=== PATIENT | female | born 1930 | race Caucasian/White ===

== ENCOUNTER 2021-03-23 16:27 | Observation (INO) | payer MEDICARE ==
--- NOTE | 2021-03-23 16:45 | ED ---
General Adult HPI - General Chief complaint: Chest Pain Stated complaint: chest & back pain Time Seen by Provider: 03/23/21 16:44 Source: patient Mode of arrival: ambulatory Limitations: no limitations - History of Present Illness Initial comments: Patient presents to the ED with her daughter for evaluation. Patient states that she has had left-sided chest pain and pain in her back between her shoulder blades intermittently for the past "few days". Patient cannot tell me exactly when her pain began. Patient states that she currently has mild pain between her shoulder blades. Patient admits to having a chronic and unchanged cough, as well as chronic and unchanged dyspnea. Patient denies trauma or injury, fever or chills, headache, focal numbness/weakness/neuro deficit, neck/arm/jaw pain, pleuritic pain, hemoptysis, palpitations, dizziness, nausea/vomiting/diaphoresis, abdominal pain, dysuria or urinary symptoms, decreased urine output, leg or calf pain, or any other symptoms or complaints. Patient states that she has not been vaccinated against Covid. - Related Data Allergies Allergy/AdvReac Type Severity Reaction Status Date / Time azithromycin Allergy Rash/Hives Verified 03/23/21 16:37 chlorpheniramine Allergy Unknown Verified 03/23/21 16:37 [From Duravent-DA] dexamethasone Allergy Unknown Verified 03/23/21 16:37 estradiol [From Estrace] Allergy Unknown Verified 03/23/21 16:37 folic acid Allergy Unknown Verified 03/23/21 16:37 methotrexate Allergy Unknown Verified 03/23/21 16:37 naproxen Allergy Unknown Verified 03/23/21 16:37 phenylephrine Allergy Unknown Verified 03/23/21 16:37 [From Duravent-DA] scopolamine Allergy Unknown Verified 03/23/21 16:37 [From Duravent-DA] shellfish derived [Shellfish] Allergy Unknown Verified 03/23/21 16:37 Review of Systems ROS Statement: Those systems with pertinent positive or pertinent negative responses have been documented in the HPI. ROS Other: All systems not noted in ROS Statement are negative. Past Medical History Past Surgical History: Appendectomy, Back Surgery, Cholecystectomy, Heart Catheterization, Hernia Repair, Hysterectomy, Orthopedic Surgery Past Psychological History: No Psychological Hx Reported Smoking Status: Never smoker Past Alcohol Use History: None Reported Past Drug Use History: None Reported General Exam Limitations: no limitations General appearance: alert, in no apparent distress Head exam: Present: atraumatic, normocephalic Eye exam: Present: normal appearance, EOMI ENT exam: Present: mucous membranes moist Neck exam: Present: other (Trachea is in midline). Absent: tenderness Respiratory exam: Present: normal lung sounds bilaterally. Absent: respiratory distress, wheezes, rales, rhonchi, stridor, chest wall tenderness Cardiovascular Exam: Present: regular rate, normal rhythm, normal heart sounds, other (Normal radial pulses bilaterally) GI/Abdominal exam: Present: soft. Absent: distended, tenderness, guarding Extremities exam: Present: other (1+ bilateral lower leg pitting edema; negative Homans sign bilaterally). Absent: tenderness, calf tenderness Back exam: Present: normal inspection. Absent: tenderness, CVA tenderness (R), CVA tenderness (L) Neurological exam: Present: alert, oriented X3. Absent: motor sensory deficit Psychiatric exam: Present: normal affect, normal mood Skin exam: Present: warm, dry, intact, normal color Course Vital Signs 03/23/21 03/23/21 03/23/21 16:30 17:04 17:19 Temperature 97.7 F Pulse Rate 70 73 Respiratory 18 20 16 Rate Blood Pressure 188/76 173/81 O2 Sat by Pulse 98 97 Oximetry 03/23/21 18:39 Temperature Pulse Rate Respiratory Rate Blood Pressure 166/79 O2 Sat by Pulse Oximetry - Reevaluation(s) Reevaluation #1: 03/23/21 18:15 Patient reports having an unknown reaction to IVP dye in the past. As such, will premedicate the patient with IV fluids, IV Benadryl and IV Solu-Medrol prior to obtaining CT angiography chest/abdomen/pelvis. 03/23/21 19:38 Patient states that her pain has now improved, and she denies development of any new symptoms while in the ED. Patient remains alert and breathing comfortably with a normal room air oxygen saturation. Patient's blood pressure has now improved, but is still elevated, and family reports that the patient does not have a history of hypertension. Patient and family are aware the patient's test results, and they all agree with hospital admission at this time. 03/23/21 20:01 Case, H&P, test results and ED management were discussed with Dr. Koch. She accepts hospital admission. She agrees with cardiology consultation. She has no further recommendations at this time. EKG Findings - EKG Comments: EKG Findings:: Sinus rhythm with a single PAC, ventricular rate of 75 bpm, normal ND and QRS intervals, normal QT interval, normal axis, no ST or T-wave ab normality Medical Decision Making - Medical Decision Making Patient's EKG is fairly unremarkable. Patient's troponin is negative. Patient's d-dimer is negative. Patient's CT angiography thorax/abdomen/pelvis aorta is negative for dissection, aneurysm or pulmonary embolism. Given the patient's reported chest pain, old age and elevated blood pressure readings in the ED, will admit the patient to the hospital for serial troponins, cardiac mon itoring, blood pressure monitoring and further evaluation. Dr. Koch has accepted hospital admission. - Lab Data Result diagrams: 03/23/21 17:04 03/23/21 17:04 Lab Results 03/23/21 03/23/21 03/23/21 Range/Units 17:04 17:04 17:04 WBC 8.4 (3.8-10.6) k/uL RBC 4.15 (3.80-5.40) m/uL Hgb 13.3 (11.4-16.0) gm/dL Hct 39.2 (34.0-46.0) % MCV 94.6 (80.0-100.0) fL MCH 32.0 (25.0-35.0) pg MCHC 33.8 (31.0-37.0) g/dL RDW 12.4 (11.5-15.5) % Plt Count 287 (150-450) k/uL MPV 6.7 Neutrophils % 71 % Lymphocytes % 21 % Monocytes % 5 % Eosinophils % 1 % Basophils % 1 % Neutrophils # 5.9 (1.3-7.7) k/uL Lymphocytes # 1.8 (1.0-4.8) k/uL Monocytes # 0.5 (0-1.0) k/uL Eosinophils # 0.1 (0-0.7) k/uL Basophils # 0.0 (0-0.2) k/uL PT 10.2 (9.0-12.0) sec INR 0.9 (<1.2) APTT 22.6 (22.0-30.0) sec D-Dimer 0.49 (<0.60) mg/L FEU Sodium 141 (137-145) mmol/L Potassium 4.0 (3.5-5.1) mmol/L Chloride 105 (98-107) mmol/L Carbon Dioxide 24 (22-30) mmol/L Anion Gap 12 mmol/L BUN 15 (7-17) mg/dL Creatinine 0.61 (0.52-1.04) mg/dL Est GFR (CKD-EPI)AfAm >90 (>60 ml/min/1.73 sqM) Est GFR (CKD-EPI)NonAf 81 (>60 ml/min/1.73 sqM) Glucose 114 H (74-99) mg/dL Calcium 10.0 (8.4-10.2) mg/dL Magnesium 2.1 (1.6-2.3) mg/dL Total Bilirubin 0.1 L (0.2-1.3) mg/dL AST 25 (14-36) U/L ALT 15 (4-34) U/L Alkaline Phosphatase 91 (38-126) U/L Troponin I (0.000-0.034) ng/mL NT-Pro-B Natriuret Pep pg/mL Total Protein 7.2 (6.3-8.2) g/dL Albumin 4.6 (3.5-5.0) g/dL 03/23/21 03/23/21 Range/Units 17:04 17:04 WBC (3.8-10.6) k/uL RBC (3.80-5.40) m/uL Hgb (11.4-16.0) gm/dL Hct (34.0-46.0) % MCV (80.0-100.0) fL MCH (25.0-35.0) pg MCHC (31.0-37.0) g/dL RDW (11.5-15.5) % Plt Count (150-450) k/uL MPV Neutrophils % % Lymphocytes % % Monocytes % % Eosinophils % % Basophils % % Neutrophils # (1.3-7.7) k/uL Lymphocytes # (1.0-4.8) k/uL Monocytes # (0-1.0) k/uL Eosinophils # (0-0.7) k/uL Basophils # (0-0.2) k/uL PT (9.0-12.0) sec INR (<1.2) APTT (22.0-30.0) sec D-Dimer (<0.60) mg/L FEU Sodium (137-145) mmol/L Potassium (3.5-5.1) mmol/L Chloride (98-107) mmol/L Carbon Dioxide (22-30) mmol/L Anion Gap mmol/L BUN (7-17) mg/dL Creatinine (0.52-1.04) mg/dL Est GFR (CKD-EPI)AfAm (>60 ml/min/1.73 sqM) Est GFR (CKD-EPI)NonAf (>60 ml/min/1.73 sqM) Glucose (74-99) mg/dL Calcium (8.4-10.2) mg/dL Magnesium (1.6-2.3) mg/dL Total Bilirubin (0.2-1.3) mg/dL AST (14-36) U/L ALT (4-34) U/L Alkaline Phosphatase (38-126) U/L Troponin I <0.012 (0.000-0.034) ng/mL NT-Pro-B Natriuret Pep 122 pg/mL Total Protein (6.3-8.2) g/dL Albumin (3.5-5.0) g/dL - Radiology Data Radiology results: report reviewed (Chest x-ray: Normal chest) CT angiography thorax/abdomen/pelvis aorta: No evidence of arterial aneurysm or dissection. No evidence of pulmonary embolism. No acute abnormality of the chest abdomen pelvis. No suspicious pulmonary mass. Disposition Clinical Impression: Chest pain, Back pain, Hypertension Disposition: ADMITTED IP TO THIS HOSP Condition: Stable Is patient prescribed a controlled substance at d/c from ED?: No Referrals: Jass Valenzuela MD [Primary Care Provider] - 1-2 days Time of Disposition: 20:03
[2021-03-23] MEDS ORDERED: LABETALOL 5 MG/ML VIAL MDV IVP STA (17:02)
[2021-03-23 17:17] LABS: Basophils % (A) 1 %; Eosinophils # (A) 0.1 k/uL (0-0.7); Eosinophils % (A) 1 %; HCT 39.2 % (34.0-46.0); HGB 13.3 gm/dL (11.4-16.0); Lymphocytes # (A) 1.8 k/uL (1.0-4.8); Lymphocytes % (A) 21 %; MCHC 33.8 g/dL (31.0-37.0); MCV 94.6 fL (80.0-100.0); Mean Platelet Volume 6.7; Monocytes # (A) 0.5 k/uL (0-1.0); Monocytes % (A) 5 %; Neutrophils # (A) 5.9 k/uL (1.3-7.7); Neutrophils % (A) 71 %; Platelet Count 287 k/uL (150-450); RBC 4.15 m/uL (3.80-5.40); RDW 12.4 % (11.5-15.5); WBC 8.4 k/uL (3.8-10.6)
[2021-03-23 17:20] VITALS: RESP 16
[2021-03-23 17:25] LABS: ALT 15 U/L (4-34); AST 25 U/L (14-36); African American GFR (CKD) >90 (>60 ml/min/1.73 sqM); Albumin 4.6 g/dL (3.5-5.0); Alkaline Phosphatase 91 U/L (38-126); Anion Gap 12 mmol/L; Blood Urea Nitrogen 15 mg/dL (7-17); Carbon Dioxide 24 mmol/L (22-30); Chloride 105 mmol/L (98-107); Glucose 114 mg/dL (74-99); Magnesium 2.1 mg/dL (1.6-2.3); Non-African American GFR(CKD) 81 (>60 ml/min/1.73 sqM); Sodium 141 mmol/L (137-145); Total Bilirubin 0.1 mg/dL (0.2-1.3); Total Protein 7.2 g/dL (6.3-8.2)
[2021-03-23 17:37] LABS: D-Dimer 0.49 mg/L FEU (<0.60); INR 0.9 (<1.2); Partial Thromboplastin Time 22.6 sec (22.0-30.0); Prothrombin Time 10.2 sec (9.0-12.0)
--- NOTE | 2021-03-23 17:49 | XR ---
EXAMINATION TYPE: XR chest 2V DATE OF EXAM: 03/23/2021 COMPARISON: NONE HISTORY: Chest pain TECHNIQUE: 2 views FINDINGS: Heart and mediastinum are normal. Lungs are clear. Diaphragm is normal. Bony thorax is inta ct. There are chest leads. IMPRESSION: Normal chest.
[2021-03-23] MEDS ORDERED: methylPREDNISolone SOD SUCCI 125 MG/2 ML VIAL IV STA (18:14)
[2021-03-23] MEDS ORDERED: diphenhydrAMINE 50 MG/ML 1 ML VIAL IVP STA (18:14)
[2021-03-23] MEDS ORDERED: SODIUM CHLORIDE 0.9% 500 ML 500 ML IV ONE (18:15)
--- NOTE | 2021-03-23 19:27 | CT ---
EXAMINATION TYPE: CT angio thor/abd pel aorta DATE OF EXAM: 03/23/2021 COMPARISON: None HISTORY: Chest/back pain, r/o dissection. CT DLP: 619.4 mGycm Automated exposure control for dose reduction was used. CONTRAST: Performed with IV Contrast, patient injected with 100 mL of Isovue 370. Images obtained from the thoracic inlet to the floor the pelvis with IV contrast. There are 3-D post processed images. The lungs are clear of consolidation. There is no pleural effusion. Heart is enlarged. There is no pe ricardial effusion. There is normal contrast opacification of the pulmonary arteries. There are no fi lling defects. The ascending aorta measures 3.5 cm. There is no aneurysm or dissection. There is 2 cm cyst in the lateral right lobe of the liver. Bile ducts are not dilated. Spleen is inta ct. Stomach is intact. There is no pancreatic mass. Gallbladder is absent. There are clips from juliet cystectomy. There is no adrenal mass. Kidneys have normal size. There is no hydronephrosis. There is 4.5 cm corti len cyst lateral right kidney. There is no retroperitoneal adenopathy. Bladder distends smoothly. The re is no inguinal hernia. There is no free fluid in the pelvis. There is no mesenteric edema. There is no ascites or free air. There is no bowel obstruction. There is thoracolumbar dextroscoliosis. There is a first-degree L4-5 spondylolisthesis. There is post erior fusion surgery at L4-5. Thoracic spine is intact. Sternum is intact. Bony pelvis is intact. The hip joints are intact. There is arterial flow in the celiac artery and superior mesenteric artery. There is arterial flow in the renal and iliac and femoral arteries. I see no evidence of hemodynamic stenosis. There is no allan dence of arterial aneurysm or dissection. IMPRESSION: No evidence of arterial aneurysm or dissection. No evidence of pulmonary embolism. No acute abnormali ty of the chest abdomen pelvis. No suspicious pulmonary mass.
[2021-03-23] MEDS ORDERED: ASPIRIN 81 MG PO STA (19:37)
[2021-03-23] MEDS ORDERED: NALOXONE 0.4 MG/ML 1 ML VIAL IV PRN (20:04)
[2021-03-23 20:45] LABS: Appearance,Urine Clear (Clear); Bilirubin,Urine Negative (Negative); Blood,Urine Negative (Negative); Color,Urine Colorless; Glucose,Urine (UA) Negative (Negative); Ketones,Urine Negative (Negative); Leukocyte Esterase,Urine Negative (Negative); Nitrite,Urine Negative (Negative); PH, Urine 6.5 (5.0-8.0); Protein,Urine Negative (Negative); Urobilinogen,Urine <0.2 mg/dL (<2.0)
[2021-03-23] MEDS ORDERED: MORPHINE SULFATE 4 MG/ML SYRINGE IVP PRN (20:53)
[2021-03-24 08:50] LABS: Basophils # (A) 0.01 X 10*3/uL (0.00-0.10); Basophils % (A) 0.1 %; Eosinophils # (A) 0 X 10*3/uL (0.04-0.35); Eosinophils % (A) 0 %; HCT 37.7 % (37.2-46.3); Lymphocytes # (A) 0.75 X 10*3/uL (0.90-5.00); Lymphocytes % (A) 9.5 %; MCH 31.9 pg (27.0-32.0); MCHC 31.8 g/dL (32.0-37.0); MCV 100.3 fL (80.0-97.0); Mean Platelet Volume 9.4 fL (9.5-12.2); Monocytes # (A) 0.11 X 10*3/uL (0.20-1.00); Monocytes % (A) 1.4 %; Neutrophils # (A) 7.03 X 10*3/uL (1.80-7.70); Neutrophils % (A) 88.6 %; Platelet Count 266 X 10*3/uL (140-440); RBC 3.76 X 10*6/uL (4.10-5.20); RDW 12.5 % (11.5-14.5); WBC 7.93 X 10*3/uL (4.50-10.00)
[2021-03-24 09:15] LABS: African American GFR (CKD) 93.7 (60.0-200.0); Albumin 4.1 g/dL (3.80-4.90); Albumin/Globulin Ratio 1.95 (1.60-3.17); Anion Gap 9.9 mmol/L (4.00-12.00); BUN/Creat Ratio 28.33 Ratio (12.00-20.00); Calcium 8.9 mg/dL (8.7-10.3); Carbon Dioxide 23.1 mmol/L (21.6-31.8); Globulin 2.1 g/dL (1.6-3.3); Non-African American GFR(CKD) 80.8 (60.0-200.0); Potassium 3.8 mmol/L (3.5-5.5); Total Bilirubin 0.3 mg/dL (0.2-1.2); Total Protein 6.2 g/dL (6.2-8.2)
--- NOTE | 2021-03-24 09:40 | P.CRDCN ---
History of Present Illness Consult date: 03/24/21 History of present illness: HISTORY OF PRESENT ILLNESS: This is a 89-year-old female with a past medical history significant for arthritis, myocardial infarction without stenting, and an irregular heart rhythm (unknown if atrial fibrillation?). We have been asked to see the patient in consultation for chest pain. Patient just moved to this area about 4 weeks ago. She used to see a case finisher in [place]. Patient states she had a full car diac workup about a year ago that was normal to her recollection. When asked about patient's history she states that she has had a history of a heart attack in the past but did not even know she had a heart attack. She states she was just told by her physician that she had one. She denies having any previous stenting. Patient also reports a history of palpitations. When asked if she had a known history of atrial fibrillation she says yes. Patient denies being on blood thinners. However she does state she takes 81 mg of aspirin daily. Patient states for the past 2-3 days she has been having intermittent back pain in between her shoulder blades and down both sides of chest (patient points to bilateral lateral chest wall when describing pain). She reports feeling shortness of breath and states she had a lot of congestion. She was attributed this discomfort to her arthritis but states her children wanted her to come to the emergency room to be evaluated. She denies any pain with deep inspiration or palpation. At the time of examination this morning, the patient denies chest pain or pressure. She denies shortness of breath. EKG reveals sinus mechanism with no signs of acute ischemia Chest xray negative for acute process. Laboratory data: WBC 7.93. Hemoglobin 12.0. Platelet count 266. D-dimer 0.49. Sodium 139. Potassium 3.8. BUN 17. Creatinine 0.60. BNP 122. Troponin negative 3. Current home cardiac medications include aspirin 81 mg daily REVIEW OF SYSTEMS: At the time of my exam: CONSTITUTIONAL: Denies fever or chills. HEENT: Denies blurred vision, vision changes, or eye pain. Denies hemoptysis CARDIOVASCULAR: Denies chest pain. Denies orthopnea. Denies PND. Denies palpitations RESPIRATORY: Denies shortness of breath. GASTROINTESTINAL: Denies abdominal pain. Denies nausea or vomiting. HEMATOLOGIC: Denies bleeding disorders. GENITOURINARY: Denies any blood in urine. SKIN: Denies pruitis. Denies rash. PHYSICAL EXAM: VITAL SIGNS: Reviewed. GENERAL: Well-developed in no acute distress. HEENT: Head is normocephalic. Pupils are equal, round. Sclerae anicteric. Mucous membranes of the mouth are moist. Neck supple. No JVD or thyromegaly LUNGS: Respirations even and unlabored. Lungs essentially clear to auscultation bilaterally. HEART: Regular rate and rhythm. S1 and S2 heard. Soft systolic murmur noted. ABDOMEN: Soft. Nondistended. Nontender. EXTREMITIES: Normal range of motion. No clubbing or cyanosis. Peripheral pulses intact. No lower extremity edema NEUROLOGIC: Awake and alert. Oriented x 3. ASSESSMENT: Chest pain, atypical Arthritis History of myocardial infarction without PCI, per patient History of irregular heart rhythm, questionable atrial fibrillation? PLAN: An acute coronary event has been ruled out Obtain 2D echo to assess cardiac structure and function Resume aspirin Continue telemetry monitoring Obtain records from patients case finisher in [place] Further recommendations pending patient course Patient may follow up outpatient with Dr. You Nurse practitioner note has been reviewed by physician. Signing provider agrees with the documented findings, assessment, and plan of care. Past Medical History Past Surgical History: Appendectomy, Back Surgery, Cholecystectomy, Heart Catheterization, Hernia Repair, Hysterectomy, Orthopedic Surgery Past Psychological History: No Psychological Hx Reported Smoking Status: Never smoker Past Alcohol Use History: None Reported Past Drug Use History: None Reported Medications and Allergies Home Medications Medication Instructions Recorded Confirmed Type Acetaminophen [Tylenol Arthritis] 1,300 mg PO TID 03/23/21 03/23/21 History Ascorbic Acid [Vitamin C] 500 mg PO DAILY 03/23/21 03/23/21 History Aspirin EC [Ecotrin Low Dose] 81 mg PO DAILY 03/23/21 03/23/21 History Betaxolol HCl [Betaxolol HCl 0.5% 1 drop BOTH EYES BID 03/23/21 03/23/21 History Ophth Soln] Bimatoprost [Lumigan .01% Ophth 1 drop BOTH EYES HS 03/23/21 03/23/21 History Soln] Brimonidine Tartrate [Alphagan P 1 drops BOTH EYES TID 03/23/21 03/23/21 History 0.2% Ophth Soln] Calcium Carbonate/Vitamin D3 1 tab PO DAILY 03/23/21 03/23/21 History [Caltrate 600 Plus D3 20 Mcg (800 Iu)] Cholecalciferol [Vitamin D3 (25 25 mcg PO DAILY 03/23/21 03/23/21 History Mcg = 1000 Iu)] Cyanocobalamin (Vitamin B-12) 1,000 mcg PO DAILY 03/23/21 03/23/21 History [Vitamin B-12] Loratadine 10 mg PO DAILY 03/23/21 03/23/21 History Multivit-Min/Iron/Folic/Lutein 1 tab PO DAILY 03/23/21 03/23/21 History [Centrum Silver Women Tablet] Netarsudil Mesylate [Rhopressa] 1 drop RIGHT EYE HS 03/23/21 03/23/21 History Pantoprazole Sodium 40 mg PO DAILY 03/23/21 03/23/21 History Thiamine HCl [Vitamin B-1] 100 mg PO DAILY 03/23/21 03/23/21 History Allergies Allergy/AdvReac Type Severity Reaction Status Date / Time azithromycin Allergy Rash/Hives Verified 03/23/21 20:55 chlorpheniramine Allergy Unknown Verified 03/23/21 20:55 [From Duravent-DA] dexamethasone Allergy Unknown Verified 03/23/21 20:55 estradiol [From Estrace] Allergy Unknown Verified 03/23/21 20:55 folic acid Allergy Unknown Verified 03/23/21 20:55 methotrexate Allergy Unknown Verified 03/23/21 20:55 naproxen Allergy Unknown Verified 03/23/21 20:55 phenylephrine Allergy Unknown Verified 03/23/21 20:55 [From Duravent-DA] scopolamine Allergy Unknown Verified 03/23/21 20:55 [From Duravent-DA] shellfish derived [Shellfish] Allergy Unknown Verified 03/23/21 20:55 Physical Exam Vitals: Vital Signs Temp Pulse Resp BP Pulse Ox 03/24/21 07:19 80 16 154/79 98 03/24/21 06:31 98 F 68 16 115/56 95 03/24/21 02:00 71 16 132/67 97 03/23/21 22:17 97.6 F 75 16 129/86 97 03/23/21 18:39 166/79 03/23/21 17:19 73 16 173/81 97 03/23/21 17:04 20 03/23/21 16:30 97.7 F 70 18 188/76 98 Intake and Output 03/23/21 03/24/21 03/24/21 22:59 06:59 14:59 Other: Weight 55.338 kg Results 03/24/21 04:19 03/24/21 04:19 Cardiac Enzymes 03/23/21 03/23/21 03/23/21 Range/Units 17:04 17:04 20:55 AST 25 (14-36) U/L Troponin I <0.012 <0.012 (0.000-0.034) ng/mL 03/24/21 03/24/21 Range/Units 00:02 04:19 AST 19 (14-36) U/L Troponin I <0.012 (0.000-0.034) ng/mL Coagulation 03/23/21 Range/Units 17:04 PT 10.2 (9.0-12.0) sec APTT 22.6 (22.0-30.0) sec CBC 03/23/21 03/24/21 Range/Units 17:04 04:19 WBC 8.4 7.93 (3.8-10.6) k/uL RBC 4.15 3.76 L (3.80-5.40) m/uL Hgb 13.3 12.0 (11.4-16.0) gm/dL Hct 39.2 37.7 (34.0-46.0) % Plt Count 287 266 (150-450) k/uL Comprehensive Metabolic Panel 03/23/21 03/24/21 Range/Units 17:04 04:19 Sodium 141 139 (137-145) mmol/L Potassium 4.0 3.8 (3.5-5.1) mmol/L Chloride 105 106 (98-107) mmol/L Carbon Dioxide 24 23.1 (22-30) mmol/L BUN 15 17.0 (7-17) mg/dL Creatinine 0.61 0.6 (0.52-1.04) mg/dL Glucose 114 H 188 H (74-99) mg/dL Calcium 10.0 8.9 (8.4-10.2) mg/dL AST 25 19 (14-36) U/L ALT 15 17 (4-34) U/L Alkaline Phosphatase 91 80 (38-126) U/L Total Protein 7.2 6.2 (6.3-8.2) g/dL Albumin 4.6 4.10 (3.5-5.0) g/dL Current Medications Generic Name Dose Route Start Last Admin Trade Name Freq PRN Reason Stop Dose Admin Morphine Sulfate 4 mg 03/23/21 20:53 Morphine Sulfate 4 Mg/Ml Syringe IVP Q4HR PRN Pain Naloxone HCl 0.2 mg 03/23/21 20:04 Naloxone 0.4 Mg/Ml 1 Ml Vial IV Q2M PRN Opioid Reversal Intake and Output 03/23/21 03/24/21 03/24/21 22:59 06:59 14:59 Other: Weight 55.338 kg 03/24/21 04:19 03/24/21 04:19
[2021-03-24] MEDS ORDERED: PANTOPRAZOLE 40 MG TABLET PO SCH (12:00)
[2021-03-24] MEDS ORDERED: ACETAMINOPHEN TAB 500 MG TAB PO PRN (13:42)
[2021-03-24] MEDS ORDERED: diphenhydrAMINE 25 MG CAP PO PRN (13:43)
[2021-03-24] MEDS ORDERED: TIMOLOL 0.5% OPHTH DROPS 5 ML BTL BOTH EYES SCH (13:45)
[2021-03-24] MEDS ORDERED: BRIMONIDINE TARTRATE 0.2% DROPS 5 ML BTL BOTH EYES SCH (16:00)
[2021-03-24 16:28] VITALS: BP 153/81; PULSE 75; TEMP 98.8
[2021-03-24] MEDS ORDERED: LATANOPROST 0.005% OPHTH DROPS 2.5 ML BTL BOTH EYES SCH (21:00)
[2021-03-25] MEDS ORDERED: MULTIVITAMINS, THERA 1 EACH TAB PO SCH (09:00)
[2021-03-25] MEDS ORDERED: LORATADINE 10 MG TAB PO SCH (09:00)
[2021-03-25] MEDS ORDERED: ASPIRIN 81 MG PO SCH (09:00)
--- NOTE | 2021-03-25 22:39 | P.HPIM ---
History of Present Illness H&P Date: 03/24/21 Chief Complaint: chest pain Ana Max is an 89 yo F with PMH of CAD s/p stenting, NC, HTN, OA who presented to the ED with chest pain. She states she was at home and felt a radiating pain in her lower chest and upper abdomen on both sides wrapping around to the back. This lasted for more than 20 mins so pt became concerned and came to the hospital. On presentation her vitals were stable, WBC 7.9, Hgb 12, trop negative. EKG NSR. Review of Systems All systems: negative Constitutional: Denies chills, Denies fever Eyes: denies blurred vision, denies pain Ears, nose, mouth and throat: Denies headache, Denies sore throat Cardiovascular: Reports chest pain, Denies shortness of breath Respiratory: Denies cough Gastrointestinal: Denies abdominal pain, Denies diarrhea, Denies nausea, Denies vomiting Genitourinary: Denies dysuria, Denies hematuria Musculoskeletal: Denies myalgias Integumentary: Denies pruritus, Denies rash Neurological: Denies numbness, Denies weakness Psychiatric: Denies anxiety, Denies depression Endocrine: Denies fatigue, Denies weight change Past Medical History Past Medical History: Asthma, Cancer, Diabetes Mellitus, Eye Disorder, GERD/Reflux, Myocardial Infarction (NC), Pneumonia Additional Past Medical History / Comment(s): "Borderline diabetes"-diet controlled, pt states she has been told she had a slight NC years ago at the bottom part of her heart-it was found during testing, R breast cancer with surgery, gastritis/stomach ulcer years ago, bilateral glaucoma/poor vision, palpitations, past frequent UTIs, urine incontinence at times, sinus problems. Last Myocardial Infarction Date:: unknown History of Any Multi-Drug Resistant Organisms: None Reported Past Surgical History: Appendectomy, Back Surgery, Breast Surgery, Cholecystectomy, Heart Catheterization, Hernia Repair, Hysterectomy, Orthopedic Surgery Additional Past Surgical History / Comment(s): 2006 cardiac cath, R nipple and lymph node removed d/t cancer, R benign breast tumor removed, L breast fibrotic tumor removed x2, L inguinal hernia repair with mesh, L little finger injury with surgery, lumbar back surgery, bilateral carpal tunnel releases, bilateral eye cataracts removed and multiple bilateral laser eye surgeries for glaucoma, EGD, colonoscopy. Past Anesthesia/Blood Transfusion Reactions: No Reported Reaction Smoking Status: Never smoker - Past Family History Father Family Medical History: CVA/TIA Additional Family Medical History / Comment(s): Father had heart problems and strokes, he at the age of 85yrs. Mother Additional Family Medical History / Comment(s): Mother had osteoporosis and lived until 96yrs old. Medications and Allergies Home Medications Medication Instructions Recorded Confirmed Type Acetaminophen [Tylenol Arthritis] 1,300 mg PO TID 03/23/21 03/23/21 History Ascorbic Acid [Vitamin C] 500 mg PO DAILY 03/23/21 03/23/21 History Aspirin EC [Ecotrin Low Dose] 81 mg PO DAILY 03/23/21 03/23/21 History Betaxolol HCl [Betaxolol HCl 0.5% 1 drop BOTH EYES BID 03/23/21 03/23/21 History Ophth Soln] Bimatoprost [Lumigan .01% Ophth 1 drop BOTH EYES HS 03/23/21 03/23/21 History Soln] Brimonidine Tartrate [Alphagan P 1 drops BOTH EYES TID 03/23/21 03/23/21 History 0.2% Ophth Soln] Calcium Carbonate/Vitamin D3 1 tab PO DAILY 03/23/21 03/23/21 History [Caltrate 600 Plus D3 20 Mcg (800 Iu)] Cholecalciferol [Vitamin D3 (25 25 mcg PO DAILY 03/23/21 03/23/21 History Mcg = 1000 Iu)] Cyanocobalamin (Vitamin B-12) 1,000 mcg PO DAILY 03/23/21 03/23/21 History [Vitamin B-12] Loratadine 10 mg PO DAILY 03/23/21 03/23/21 History Multivit-Min/Iron/Folic/Lutein 1 tab PO DAILY 03/23/21 03/23/21 History [Centrum Silver Women Tablet] Netarsudil Mesylate [Rhopressa] 1 drop RIGHT EYE HS 03/23/21 03/23/21 History Pantoprazole Sodium 40 mg PO DAILY 03/23/21 03/23/21 History Thiamine HCl [Vitamin B-1] 100 mg PO DAILY 03/23/21 03/23/21 History Allergies Allergy/AdvReac Type Severity Reaction Status Date / Time azithromycin Allergy Rash/Hives Verified 03/23/21 20:55 chlorpheniramine Allergy Unknown Verified 03/23/21 20:55 [From Duravent-DA] dexamethasone Allergy Unknown Verified 03/23/21 20:55 estradiol [From Estrace] Allergy Unknown Verified 03/23/21 20:55 folic acid Allergy Unknown Verified 03/23/21 20:55 methotrexate Allergy Unknown Verified 03/23/21 20:55 naproxen Allergy Unknown Verified 03/23/21 20:55 phenylephrine Allergy Unknown Verified 03/23/21 20:55 [From Duravent-DA] scopolamine Allergy Unknown Verified 03/23/21 20:55 [From Duravent-DA] shellfish derived [Shellfish] Allergy Unknown Verified 03/23/21 20:55 Physical Exam General: well nourished, well developed, NAD. Vitals reviewed Eyes: PERRL, EOMI, conjunctiva normal HENT: normocephalic, mucus membranes moist Neck: supple, no JVD Lungs: normal respiratory effort, no wheezes or rales CV: Regular rate and rhythm, no murmur. Peripheral pulses 2+ Abdomen: soft, nondistended, no organomegaly Lymph: no cervical or axillary LAD Skin: warm and dry. Neuro: A&Ox3, normal mood and affect Results CBC & Chem 7: 03/24/21 04:19 03/24/21 04:19 Thrombosis Risk Factor Assmnt - Choose All That Apply Any of the Below Risk Factors Present?: Yes Other Risk Factors: Yes Each Risk Factor Represents 2 Points: Malignancy Each Risk Factor Represents 3 Points: Age 75 years or older Other congenital or acquired thrombophilia - If yes, enter type in comment: No Thrombosis Risk Factor Assessment Total Risk Factor Score: 5 Thrombosis Risk Factor Assessment Level: High Risk Assessment and Plan Plan: 1. Chest pain. ACS ruled out. Cardiology consulted for further evaluation. Continue home medications
--- NOTE | 2021-03-25 22:41 | P.DS ---
Providers Date of admission: 03/23/21 20:04 Attending physician: Jass Valenzuela MD Consults: 03/23/21 20:05 Consult Physician Urgent Consulting Provider: Terry Pascal Consult Reason/Comments: chest pain, hypertension Do you want consulting provider notified?: Yes Primary care physician: Jass Valenzuela MD Hospital Course: Ana Max is an 89 yo F with PMH of CAD s/p stenting, AK, HTN, OA who prese nted to the ED with chest pain. She states she was at home and felt a radiating pain in her lower chest and upper abdomen on both sides wrapping around to the back. This lasted for more than 20 mins so pt became concerned and came to the hospital. On presentation her vitals were stable, WBC 7.9, Hgb 12, trop negative. EKG NSR. Pt was admitted to medicine and seen by Cardiology. Her pain did completely resolve. Thoracic aorta CT performed which was wnl. Pain was felt to be musculoskeletal in nature. She is discharged in stable condition and recommended to follow up with Cardiology and her PCP. Patient Condition at Discharge: Stable Plan - Discharge Summary Discharge Rx Participant: No New Discharge Prescriptions: Continue Cholecalciferol [Vitamin D3 (25 Mcg = 1000 Iu)] 25 mcg PO DAILY Ascorbic Acid [Vitamin C] 500 mg PO DAILY Thiamine HCl [Vitamin B-1] 100 mg PO DAILY Netarsudil Mesylate [Rhopressa] 1 drop RIGHT EYE HS Bimatoprost [Lumigan .01% Ophth Soln] 1 drop BOTH EYES HS Brimonidine Tartrate [Alphagan P 0.2% Ophth Soln] 1 drops BOTH EYES TID Betaxolol HCl [Betaxolol HCl 0.5% Ophth Soln] 1 drop BOTH EYES BID Multivit-Min/Iron/Folic/Lutein [Centrum Silver Women Tablet] 1 tab PO DAILY Loratadine 10 mg PO DAILY Cyanocobalamin (Vitamin B-12) [Vitamin B-12] 1,000 mcg PO DAILY Calcium Carbonate/Vitamin D3 [Caltrate 600 Plus D3 20 Mcg (800 Iu)] 1 tab PO DAILY Aspirin EC [Ecotrin Low Dose] 81 mg PO DAILY Pantoprazole Sodium 40 mg PO DAILY Acetaminophen [Tylenol Arthritis] 1,300 mg PO TID Discharge Medication List Acetaminophen [Tylenol Arthritis] 1,300 mg PO TID 03/23/21 [History] Ascorbic Acid [Vitamin C] 500 mg PO DAILY 03/23/21 [History] Aspirin EC [Ecotrin Low Dose] 81 mg PO DAILY 03/23/21 [History] Betaxolol HCl [Betaxolol HCl 0.5% Ophth Soln] 1 drop BOTH EYES BID 03/23/21 [History] Bimatoprost [Lumigan .01% Ophth Soln] 1 drop BOTH EYES HS 03/23/21 [History] Brimonidine Tartrate [Alphagan P 0.2% Ophth Soln] 1 drops BOTH EYES TID 03/23/21 [History] Calcium Carbonate/Vitamin D3 [Caltrate 600 Plus D3 20 Mcg (800 Iu)] 1 tab PO DAILY 03/23/21 [History] Cholecalciferol [Vitamin D3 (25 Mcg = 1000 Iu)] 25 mcg PO DAILY 03/23/21 [History] Cyanocobalamin (Vitamin B-12) [Vitamin B-12] 1,000 mcg PO DAILY 03/23/21 [History] Loratadine 10 mg PO DAILY 03/23/21 [History] Multivit-Min/Iron/Folic/Lutein [Centrum Silver Women Tablet] 1 tab PO DAILY 03/23/21 [History] Netarsudil Mesylate [Rhopressa] 1 drop RIGHT EYE HS 03/23/21 [History] Pantoprazole Sodium 40 mg PO DAILY 03/23/21 [History] Thiamine HCl [Vitamin B-1] 100 mg PO DAILY 03/23/21 [History] Follow up Appointment(s)/Referral(s): Tristan You MD [STAFF PHYSICIAN] - 1 Week Jass Valenzuela MD [Primary Care Provider] - 3 Days Discharge Disposition: HOME SELF-CARE
== END 2021-03-24 16:29 | disposition home or self-care (01) ==
LOC: EC 16:27 → 6NMEDSUR 20:04
PROVIDERS: ADMIT Family Medicine; ATTEND Family Medicine
DX: R07.89 Other chest pain (principal); J45.909 Unspecified asthma, uncomplicated; I25.2 Old myocardial infarction; I10 Essential (primary) hypertension; Z20.822 Contact with and (suspected) exposure to COVID-19; I25.10 Atherosclerotic heart disease of native coronary artery without angina pectoris; I48.91 Unspecified atrial fibrillation; M19.90 Unspecified osteoarthritis, unspecified site; K21.9 Gastro-esophageal reflux disease without esophagitis; H40.9 Unspecified glaucoma; H54.7 Unspecified visual loss; G56.03 Carpal tunnel syndrome, bilateral upper limbs; M54.9 Dorsalgia, unspecified; R32 Unspecified urinary incontinence; R73.03 Prediabetes; K40.90 Unilateral inguinal hernia, without obstruction or gangrene, not specified as recurrent; Z79.82 Long term (current) use of aspirin; Z79.899 Other long term (current) drug therapy; Z88.1 Allergy status to other antibiotic agents; Z88.2 Allergy status to sulfonamides; Z88.4 Allergy status to anesthetic agent; Z88.8 Allergy status to other drugs, medicaments and biological substances; Z88.9 Allergy status to unspecified drugs, medicaments and biological substances; Z88.6 Allergy status to analgesic agent; Z91.013 Allergy to seafood; Z95.5 Presence of coronary angioplasty implant and graft; Z90.89 Acquired absence of other organs; Z90.710 Acquired absence of both cervix and uterus; Z90.49 Acquired absence of other specified parts of digestive tract; Z85.3 Personal history of malignant neoplasm of breast; Z86.018 Personal history of other benign neoplasm; Z87.11 Personal history of peptic ulcer disease; Z87.440 Personal history of urinary (tract) infections; Z82.62 Family history of osteoporosis; Z82.3 Family history of stroke
CPT/HCPCS: 96361; 96374; 96375; 99285; 36415; 93005; 85379; 83880; 80053 ×2; 83735; 84484 ×2; 85025 ×2; 85610; 85730; 81003; 87635; 71046; 71275; 74174; G0378 ×2; J1200; J2930; Q9967

== ENCOUNTER 2021-08-24 15:53 | Emergency (ER) | payer MEDICARE ==
[2021-08-24 16:27] VITALS: BP 152/75; PULSE 92; TEMP 99.7
[2021-08-24 17:53] VITALS: RESP 19
--- NOTE | 2021-08-24 17:54 | ED ---
General Adult HPI - General Chief complaint: Shortness of Breath Stated complaint: LJ Time Seen by Provider: 08/24/21 17:19 Source: patient Mode of arrival: wheelchair Limitations: no limitations - History of Present Illness Initial comments: Dictation was produced using [employer] dictation software. please excuse any grammatical, word or spelling errors. Chief Complaint: 89-year-old female presents emergency department for sore throa t respiratory issues. History of Present Illness: Patient is an 89-year-old female she is brought to the emergency department by granddaughter who is the power of employee benefits attorney. Patient allegedly just moved into town from outside city recently within the last week. She moved into a mobile home that allegedly was full of dust. Patient has history of asthma and has been having cough and respiratory symptoms since the exposed with a mobile home. Granddaughter believes that patient's respiratory symptoms are secondary to dust the air ducts and thus the living area. The ROS documented in this emergency department record has been reviewed and confirmed by me. Those systems with pertinent positive or negative responses have been documented in the HPI. All other systems are other negative and/or noncontributory. PHYSICAL EXAM: General Impression: Alert and oriented x3, not in acute distress HEENT: Normocephalic atraumatic, extra-ocular movements intact, pupils equal and reactive to light bilaterally, mucous membranes moist. Cardiovascular: Heart regular rate and rhythm Chest: Able to complete full sentences, no retractions, no tachypnea Abdomen: abdomen soft, non-tender, non-distended, no organomegaly Musculoskeletal: Pulses present and equal in all extremities, no peripheral edema Motor: no focal deficits noted Neurological: CN II-XII grossly intact, no focal motor or sensory deficits noted Skin: Intact with no visualized rashes Psych: Normal affect and mood ED course: 89-year-old female presents to the emergency department for cough, sore throat. She has a history of asthma. Vital signs upon arrival shows temperature 99.7, rest of vital signs within acceptable limits. Patient reevaluated at the bedside at 7:40 PM she states that she is having some mild sinus symptoms. She'll had 3 days however there is some concern for sinusitis. Patient given prescription for antibiotics. Laboratory workup is unremarkable. CBC, coag panel is negative. Negative for cocaine, influenza RSV. Chest x-ray is nonacute. Patient observed in emergency department for approximately 4 hours found to be in stable medical condition upon reevaluation. She has a regular inhaler that she is instructed to use whenever she has symptoms of dyspnea. EKG interpretation: Ventricular rate 96, sinus rhythm,. 160, QRS 84, QTC 480. No WA prolongation, no QTC prolongation, no ST or T-wave changes noted. Overall, this EKG is unremarkable - Related Data Home Medications Medication Instructions Recorded Confirmed Acetaminophen [Tylenol Arthritis] 1,300 mg PO TID 03/23/21 03/23/21 Ascorbic Acid [Vitamin C] 500 mg PO DAILY 03/23/21 03/23/21 Aspirin EC [Ecotrin Low Dose] 81 mg PO DAILY 03/23/21 03/23/21 Betaxolol HCl [Betaxolol HCl 0.5% 1 drop BOTH EYES BID 03/23/21 03/23/21 Ophth Soln] Bimatoprost [Lumigan .01% Ophth 1 drop BOTH EYES HS 03/23/21 03/23/21 Soln] Brimonidine Tartrate [Alphagan P 1 drops BOTH EYES TID 03/23/21 03/23/21 0.2% Ophth Soln] Calcium Carbonate/Vitamin D3 1 tab PO DAILY 03/23/21 03/23/21 [Caltrate 600 Plus D3 20 Mcg (800 Iu)] Cholecalciferol [Vitamin D3 (25 25 mcg PO DAILY 03/23/21 03/23/21 Mcg = 1000 Iu)] Cyanocobalamin (Vitamin B-12) 1,000 mcg PO DAILY 03/23/21 03/23/21 [Vitamin B-12] Loratadine 10 mg PO DAILY 03/23/21 03/23/21 Multivit-Min/Iron/Folic/Lutein 1 tab PO DAILY 03/23/21 03/23/21 [Centrum Silver Women Tablet] Netarsudil Mesylate [Rhopressa] 1 drop RIGHT EYE HS 03/23/21 03/23/21 Pantoprazole Sodium 40 mg PO DAILY 03/23/21 03/23/21 Thiamine HCl [Vitamin B-1] 100 mg PO DAILY 03/23/21 03/23/21 Previous Rx's Medication Instructions Recorded Amoxic-Pot Clav 875-125Mg 1 tab PO BID 10 Days #20 tab 08/24/21 [Augmentin 875-125] Allergies Allergy/AdvReac Type Severity Reaction Status Date / Time azithromycin Allergy Rash/Hives Verified 08/24/21 16:27 chlorpheniramine Allergy Unknown Verified 08/24/21 16:27 [From Duravent-DA] dexamethasone Allergy Unknown Verified 08/24/21 16:27 estradiol [From Estrace] Allergy Unknown Verified 08/24/21 16:27 folic acid Allergy Unknown Verified 08/24/21 16:27 methotrexate Allergy Unknown Verified 08/24/21 16:27 naproxen Allergy Unknown Verified 08/24/21 16:27 phenylephrine Allergy Unknown Verified 08/24/21 16:27 [From Duravent-DA] scopolamine Allergy Unknown Verified 08/24/21 16:27 [From Duravent-DA] shellfish derived [Shellfish] Allergy Unknown Verified 08/24/21 16:27 Review of Systems ROS Statement: Those systems with pertinent positive or pertinent negative responses have been documented in the HPI. ROS Other: All systems not noted in ROS Statement are negative. Past Medical History Past Medical History: Asthma, Cancer, Diabetes Mellitus, Eye Disorder, GERD/Reflux, Myocardial Infarction (PR), Pneumonia Additional Past Medical History / Comment(s): "Borderline diabetes"-diet controlled, pt states she has been told she had a slight PR years ago at the bottom part of her heart-it was found during testing, R breast cancer with surgery, gastritis/stomach ulcer years ago, bilateral glaucoma/poor vision, palpitations, past frequent UTIs, urine incontinence at times, sinus problems. Last Myocardial Infarction Date:: unknown History of Any Multi-Drug Resistant Organisms: None Reported Past Surgical History: Appendectomy, Back Surgery, Breast Surgery, Cholecystectomy, Heart Catheterization, Hernia Repair, Hysterectomy, Orthopedic Surgery Additional Past Surgical History / Comment(s): 2006 cardiac cath, R nipple and lymph node removed d/t cancer, R benign breast tumor removed, L breast fibrotic tumor removed x2, L inguinal hernia repair with mesh, L little finger injury with surgery, lumbar back surgery, bilateral carpal tunnel releases, bilateral eye cataracts removed and multiple bilateral laser eye surgeries for glaucoma, EGD, colonoscopy. Past Anesthesia/Blood Transfusion Reactions: No Reported Reaction Past Psychological History: No Psychological Hx Reported Smoking Status: Never smoker Past Alcohol Use History: None Reported Past Drug Use History: None Reported - Past Family History Father Family Medical History: CVA/TIA Additional Family Medical History / Comment(s): Father had heart problems and strokes, he at the age of 85yrs. Mother Additional Family Medical History / Comment(s): Mother had osteoporosis and lived until 96yrs old. General Exam Limitations: no limitations Course Vital Signs 08/24/21 08/24/21 16:24 17:27 Temperature 99.7 F H Pulse Rate 92 Respiratory 20 19 Rate Blood Pressure 152/75 O2 Sat by Pulse 95 Oximetry Medical Decision Making - Lab Data Result diagrams: 08/24/21 17:45 08/24/21 17:45 Lab Results 08/24/21 08/24/21 08/24/21 Range/Units 16:31 17:45 17:45 WBC 12.9 H (3.8-10.6) k/uL RBC 3.81 (3.80-5.40) m/uL Hgb 12.3 (11.4-16.0) gm/dL Hct 36.8 (34.0-46.0) % MCV 96.5 (80.0-100.0) fL MCH 32.3 (25.0-35.0) pg MCHC 33.5 (31.0-37.0) g/dL RDW 12.3 (11.5-15.5) % Plt Count 297 (150-450) k/uL MPV 6.9 Sodium 135 L (137-145) mmol/L Potassium 3.9 (3.5-5.1) mmol/L Chloride 103 (98-107) mmol/L Carbon Dioxide 23 (22-30) mmol/L Anion Gap 9 mmol/L BUN 12 (7-17) mg/dL Creatinine 0.48 L (0.52-1.04) mg/dL Est GFR (CKD-EPI)AfAm >90 (>60 ml/min/1.73 sqM) Est GFR (CKD-EPI)NonAf 87 (>60 ml/min/1.73 sqM) Glucose 144 H (74-99) mg/dL Calcium 9.9 (8.4-10.2) mg/dL Total Bilirubin 0.3 (0.2-1.3) mg/dL AST 27 (14-36) U/L ALT 21 (4-34) U/L Alkaline Phosphatase 75 (38-126) U/L Total Protein 7.1 (6.3-8.2) g/dL Albumin 4.4 (3.5-5.0) g/dL Coronavirus (PCR) Not Detected (Not Detectd) Influenza Type A RNA (Not Detectd) Influenza Type B (PCR) (Not Detectd) RSV (PCR) (Negative) 08/24/21 08/24/21 Range/Units 17:45 17:45 WBC (3.8-10.6) k/uL RBC (3.80-5.40) m/uL Hgb (11.4-16.0) gm/dL Hct (34.0-46.0) % MCV (80.0-100.0) fL MCH (25.0-35.0) pg MCHC (31.0-37.0) g/dL RDW (11.5-15.5) % Plt Count (150-450) k/uL MPV Sodium (137-145) mmol/L Potassium (3.5-5.1) mmol/L Chloride (98-107) mmol/L Carbon Dioxide (22-30) mmol/L Anion Gap mmol/L BUN (7-17) mg/dL Creatinine (0.52-1.04) mg/dL Est GFR (CKD-EPI)AfAm (>60 ml/min/1.73 sqM) Est GFR (CKD-EPI)NonAf (>60 ml/min/1.73 sqM) Glucose (74-99) mg/dL Calcium (8.4-10.2) mg/dL Total Bilirubin (0.2-1.3) mg/dL AST (14-36) U/L ALT (4-34) U/L Alkaline Phosphatase (38-126) U/L Total Protein (6.3-8.2) g/dL Albumin (3.5-5.0) g/dL Coronavirus (PCR) (Not Detectd) Influenza Type A RNA Not Detected (Not Detectd) Influenza Type B (PCR) Not Detected (Not Detectd) RSV (PCR) Negative (Negative) Disposition Clinical Impression: Sinusitis Disposition: HOME SELF-CARE Condition: Good Instructions (If sedation given, give patient instructions): Sinusitis (ED) Prescriptions: Amoxic-Pot Clav 875-125Mg [Augmentin 875-125] 1 tab PO BID 10 Days #20 tab Is patient prescribed a controlled substance at d/c from ED?: No Referrals: Jass Valenzuela MD [Primary Care Provider] - 1-2 days
--- NOTE | 2021-08-24 17:58 | XR ---
EXAMINATION TYPE: XR chest 2V DATE OF EXAM: 08/24/2021 COMPARISON: Chest radiograph 03/23/2021 HISTORY: Dyspnea TECHNIQUE: Frontal and lateral views of the chest are obtained. FINDINGS: There is no focal air space opacity, pleural effusion, or pneumothorax seen. The cardiac silhouette size is within normal limits. The osseous structures are intact. IMPRESSION: No acute cardiopulmonary process.
[2021-08-24 18:10] LABS: HCT 36.8 % (34.0-46.0); HGB 12.3 gm/dL (11.4-16.0); MCH 32.3 pg (25.0-35.0); MCHC 33.5 g/dL (31.0-37.0); MCV 96.5 fL (80.0-100.0); Mean Platelet Volume 6.9; Platelet Count 297 k/uL (150-450); RBC 3.81 m/uL (3.80-5.40); RDW 12.3 % (11.5-15.5); WBC 12.9 k/uL (3.8-10.6)
[2021-08-24 18:27] LABS: ALT 21 U/L (4-34); AST 27 U/L (14-36); African American GFR (CKD) >90 (>60 ml/min/1.73 sqM); Albumin 4.4 g/dL (3.5-5.0); Alkaline Phosphatase 75 U/L (38-126); Anion Gap 9 mmol/L; Blood Urea Nitrogen 12 mg/dL (7-17); Calcium 9.9 mg/dL (8.4-10.2); Carbon Dioxide 23 mmol/L (22-30); Chloride 103 mmol/L (98-107); Glucose 144 mg/dL (74-99); Non-African American GFR(CKD) 87 (>60 ml/min/1.73 sqM); Potassium 3.9 mmol/L (3.5-5.1); Sodium 135 mmol/L (137-145); Total Bilirubin 0.3 mg/dL (0.2-1.3); Total Protein 7.1 g/dL (6.3-8.2)
== END 2021-08-24 19:59 | disposition home or self-care (01) ==
LOC: EC 15:53
DX: J32.9 Chronic sinusitis, unspecified (principal); E11.36 Type 2 diabetes mellitus with diabetic cataract; J45.909 Unspecified asthma, uncomplicated; I25.2 Old myocardial infarction; K21.9 Gastro-esophageal reflux disease without esophagitis; Z20.822 Contact with and (suspected) exposure to COVID-19; Z79.82 Long term (current) use of aspirin; Z79.899 Other long term (current) drug therapy; Z90.49 Acquired absence of other specified parts of digestive tract; Z85.3 Personal history of malignant neoplasm of breast
CPT/HCPCS: 36415; 71046; 80053; 85027; 87502; 87634; 87635; 93005; 99284